=== PATIENT | male | born 1965 | race Caucasian/White ===

== ENCOUNTER 2016-08-31 22:05 | Emergency (ER) | payer OTHER ==
[2016-08-31] MEDS ORDERED: HYDROcod/ACET 5/325 Prepack 6 PO STA (23:28)
[2016-08-31] MEDS ORDERED: HYDROcod/ACET 5/325 Prepack 6 PO ONE (23:29)
== END 2016-08-31 23:40 | disposition home or self-care (01) ==
DX: S99.921A Unspecified injury of right foot, initial encounter (principal); W20.8XXA Other cause of strike by thrown, projected or falling object, initial encounter; Y92.89 Other specified places as the place of occurrence of the external cause; Y99.0 Civilian activity done for income or pay

== ENCOUNTER 2016-11-30 03:35 | Outpatient (CLI) | payer OTHER | END 2016-11-30 03:36 | disposition critical access hospital (66) | LOC: EMS 03:35 | PROVIDERS: ATTEND Surgery | DX: R07.9 Chest pain, unspecified (principal) | CPT/HCPCS: A0425; A0427 ==

== ENCOUNTER 2016-11-30 03:54 | Emergency (ER) | payer OTHER ==
--- NOTE | 2016-11-30 04:12 | ED Physician Documentation ---
PD HPI CHEST PAIN - Stated complaint Stated Complaint: CP - Chief complaint Chief Complaint: Cardiac - History obtained from History obtained from: Patient - History of Present Illness Timing - onset: Enter time (03:00), Today Timing - onset during: Light activity (getting ready for work) Timing - details: Abrupt onset Pain level max: 7 Pain level now: 1 Quality: Pressure Location: Left chest Improved by: Nothing Worsened by: Inspiration Associated symptoms: Shortness of air. No: Diaphoresis, Nausea, Vomiting Similar symptoms before: Has not had sx before Recently seen: Not recently seen - Additional information Additional information: chest pressure while getting ready for work approximately 1 hour [employer] associated with dyspnea, /10 but after SLNTG x 1, discomfort down to 1/10. Also given aspirin in field by medics. Patient was prescribed metoprolol by an ED physician last year, 1 month supply with two refills. Patient describes poor compliance, such that the one month supply lasted a few months, and that he did not obtain refills (he did got to a pharmacy, but he did not have the bottle with him and it was not the same pharmacy that filled the initial rx), nor follow up with an outpatient physician. He has the empty bottle of metoprolol in ED at this time, and it indicates 2 refills remain that are still available until January 2017. Review of Systems Cardiac: reports: Chest pain / pressure. denies: Pedal edema Respiratory: reports: Dyspnea. denies: Cough GI: reports: Reviewed and negative Musculoskeletal: reports: Reviewed and negative PD PAST MEDICAL HISTORY - Past Medical History Past Medical History: Yes Cardiovascular: Hypertension GI: GERD HEENT: None - Past Surgical History Past Surgical History: No Ortho: Other - Present Medications Home Medications: Ambulatory Orders Medication Instructions Recorded Confirmed Lansoprazole [Prevacid] 30 mg PO DAILY 11/30/16 11/30/16 Metoprolol Tartrate 25 mg PO BID 11/30/16 11/30/16 - Allergies Allergies/Adverse Reactions: Allergies Allergy/AdvReac Type Severity Reaction Status Date / Time No Known Drug Allergies Allergy Verified 11/30/16 04:00 - Social History Does the pt smoke?: No Smoking Status: Never smoker Does the pt drink ETOH?: Yes Does the pt have substance abuse?: Yes Substance Use and Type: Marijuana - Immunizations Immunizations are current?: No - POLST Patient has POLST: No PD ED PE NORMAL - Vitals Vital signs reviewed: Yes - General General: Alert and oriented X 3, No acute distress, Well developed/nourished - Cardiac Cardiac: RRR, No murmur, No gallop, No rub - Respiratory Respiratory: No respiratory distress, Clear bilaterally - Abdomen Abdomen: Soft, Non tender - Derm Derm: Normal color, Warm and dry - Extremities Extremities: No edema Results - Vitals Vitals: Vital Signs - 24 hr 11/30/16 11/30/16 11/30/16 03:56 04:09 04:34 Temperature 36.9 C Heart Rate 76 74 69 Respiratory 18 12 15 Rate Blood Pressure 125/74 130/81 H 130/84 H O2 Saturation 98 96 94 11/30/16 05:15 Temperature 36.5 C Heart Rate 78 Respiratory 15 Rate Blood Pressure 129/80 O2 Saturation 98 Oxygen O2 Source Room air - EKG (time done) No standard instances Rate: Rate (enter#) (74) Rhythm: NSR [place]: Normal Intervals: Normal OK QRS: Normal Ischemia: Normal ST segments - Labs Labs: Laboratory Tests 11/30/16 11/30/16 11/30/16 04:05 04:05 04:05 WBC 5.9 RBC 4.29 L Hgb 14.1 Hct 41.2 L MCV 96.0 H MCH 32.9 H MCHC 34.3 RDW 13.7 Plt Count 203 MPV 7.8 Neut # 3.4 Lymph # 1.7 Cottle # 0.5 Eos # 0.2 Baso # 0.1 Absolute Nucleated RBC 0.01 Nucleated RBCs 0.1 D-Dimer Sodium 137 Potassium 3.8 Chloride 104 Carbon Dioxide 22 Anion Gap 11.0 BUN 10 Creatinine 0.8 Estimated GFR (MDRD) 103 Glucose 113 H Calcium 8.6 Total Bilirubin 0.5 AST 27 ALT 20 Alkaline Phosphatase 43 Troponin I < 0.04 Total Protein 6.3 L Albumin 3.9 Globulin 2.4 Albumin/Globulin Ratio 1.6 Lipase 33 11/30/16 04:05 WBC RBC Hgb Hct MCV MCH MCHC RDW Plt Count MPV Neut # Lymph # Cottle # Eos # Baso # Absolute Nucleated RBC Nucleated RBCs D-Dimer < 200.0 L Sodium Potassium Chloride Carbon Dioxide Anion Gap BUN Creatinine Estimated GFR (MDRD) Glucose Calcium Total Bilirubin AST ALT Alkaline Phosphatase Troponin I Total Protein Albumin Globulin Albumin/Globulin Ratio Lipase - Rads (name of study) chest xray Radiology: Prelim report reviewed, See rad report PD MEDICAL DECISION MAKING - ED course Complexity details: reviewed results, re-evaluated patient, considered differential, d/w patient Departure - Departure Disposition: 01 Home, Self Care Clinical Impression: Chest pain Condition: Good Instructions: ED Chest Pain Atypical Unkn Cause Follow-Up: [facility] [Provider Group] [facility] [Provider Group] Comments: Refill your blood pressure medication (metoprolol) and resume taking it as prescribed. It is very important that you follow up with a primary care physician. If you do not have one, I recommend you contact your insurance provider and ask to be assigned a physician. Forms: Activity restrictions Discharge Date/Time: 11/30/16 06:02
[2016-11-30 04:24] LABS: BASOPHILS # (AUTO) 0.1 10^3/uL (0.0-0.1); BASOPHILS % (AUTO) 1.2 %; EOSINOPHILS # (AUTO) 0.2 10^3/uL (0.0-0.7); EOSINOPHILS % (AUTO) 2.8 %; HCT - HEMATOCRIT 41.2 % (42.0-52.0); HGB - HEMOGLOBIN 14.1 g/dL (14.0-18.0); LYMPHOCYTES # (AUTO) 1.7 10^3/uL (1.5-3.5); LYMPHOCYTES % (AUTO) 29.6 %; MEAN CORPUSCULAR HEMOGLOBIN 32.9 pg (27.0-31.0); MEAN CORPUSCULAR HGB CONC 34.3 g/dL (32.0-36.0); MEAN PLATELET VOLUME 7.8 fL (7.4-11.4); MONOCYTES # (AUTO) 0.5 10^3/uL (0.0-1.0); MONOCYTES % (AUTO) 8.7 %; NEUTROPHILS # (AUTO) 3.4 10^3/uL (1.5-6.6); NEUTROPHILS % (AUTO) 57.7 %; NUCLEATED RED BLOOD CELLS AUTO 0.1 /100WBC; RED BLOOD COUNT 4.29 10^6/uL (4.70-6.10); RED CELL DISTRIBUTION WIDTH 13.7 % (12.0-15.0); UNCORRECTED WHITE BLOOD COUNT 5.9 x10^3/uL; WHITE BLOOD COUNT 5.9 x10^3/uL (4.8-10.8)
[2016-11-30 04:31] LABS: ALBUMIN/GLOBULIN RATIO 1.6 (1.0-2.2); BILIRUBIN,TOTAL 0.5 mg/dL (0.2-1.0); CALCIUM 8.6 mg/dL (8.5-10.3); CREATININE 0.8 mg/dL (0.6-1.2); POTASSIUM 3.8 mmol/L (3.5-5.0); TOTAL PROTEIN 6.3 g/dL (6.7-8.2)
--- NOTE | 2016-11-30 05:02 | XRAY Preliminary Report ---
Exam: XR Chest 2 View PA/LAT IMPRESSION: No acute cardiopulmonary abnormality demonstrated. Increased lung volumes suggesting und erlying obstructive pulmonary disease. [facility] SITE ID: [id number]
--- NOTE | 2016-11-30 05:05 | XRAY Report ---
EXAM: CHEST RADIOGRAPHY EXAM DATE: 11/30/2016 04:43 AM. CLINICAL HISTORY: Chest pain and shortness of breath, left-sided pain, lightheadedness COMPARISON: None. TECHNIQUE: 2 views. A total of 3 exposures are provided for review. FINDINGS: Lungs/Pleura: No focal opacities evident. No pleural effusion. No pneumothorax. Normal volumes. Incre ased lung volumes. Mediastinum: Heart and mediastinal contours are unremarkable. Other: None. IMPRESSION: No acute cardiopulmonary abnormality demonstrated. Increased lung volumes suggesting und erlying obstructive pulmonary disease. [facility] Referring Provider Line: [phone] SITE ID: [id number]
[2016-11-30 05:16] VITALS: BP 129/80
== END 2016-11-30 06:02 | disposition home or self-care (01) ==
LOC: EDUNIT# → ED 03:54
DX: R07.89 Other chest pain (principal); I10 Essential (primary) hypertension; Z91.14 Patient's other noncompliance with medication regimen; K21.9 Gastro-esophageal reflux disease without esophagitis
CPT/HCPCS: 36415; 71020; 80053; 83690; 84484; 85025; 85379; 93005; 93010; 99284

== ENCOUNTER 2019-10-05 14:49 | Outpatient (CLI) | payer OTHER | END 2019-10-05 14:50 | disposition home or self-care (01) | LOC: COV 14:49 | PROVIDERS: ATTEND Family Medicine | DX: R05 Cough (principal); R50.9 Fever, unspecified | CPT/HCPCS: 81599 ==

== ENCOUNTER 2020-10-12 | Outpatient (CLI) | payer OTHER | END 2020-10-12 21:47 | disposition EMS.NT | CPT/HCPCS: A0425; A0429 ==

== ENCOUNTER 2020-10-12 | Outpatient (CLI) | payer OTHER | END 2020-10-12 23:59 | disposition EMS.NT | DX: R04.0 Epistaxis (principal) ==

== ENCOUNTER 2020-10-12 21:58 | Emergency (ER) | payer OTHER ==
[2020-10-12] MEDS ORDERED: OXYMETAZOLINE HCL 100 SPRAYS BOTTLE NAS STA (22:15)
[2020-10-12] MEDS ORDERED: TRANEXAMIC ACID 1,000 MG/10 ML VIAL NAS STA (22:15)
[2020-10-12] MEDS ORDERED: SILVER NITRATE APPLICATOR TOP STA ×2 (22:28→22:29)
--- NOTE | 2020-10-12 22:39 | ED Physician Documentation ---
History of Present Illness - Stated complaint Stated Complaint: NOSEBLEEDS - Chief complaint Chief Complaint: General PD PAST MEDICAL HISTORY - Past Medical History Past Medical History: Yes Cardiovascular: Hypertension, High cholesterol GI: GERD HEENT: None - Past Surgical History Past Surgical History: No Ortho: Other - Present Medications Home Medications: Ambulatory Orders Medication Instructions Recorded Confirmed Lansoprazole [Prevacid] 30 mg PO DAILY 11/30/16 11/30/16 Metoprolol Tartrate 25 mg PO BID 11/30/16 11/30/16 - Allergies Allergies/Adverse Reactions: Allergies Allergy/AdvReac Type Severity Reaction Status Date / Time No Known Drug Allergies Allergy Verified 10/12/20 22:03 - Social History Does the pt smoke?: No Smoking Status: Never smoker Does the pt drink ETOH?: Yes Does the pt have substance abuse?: Yes - Immunizations Immunizations are current?: No - POLST Patient has POLST: No Results - Vitals Vitals: Vital Signs - 24 hr 10/12/20 10/12/20 22:03 22:07 Temperature 36.6 C 36.6 C Heart Rate 62 62 Respiratory 18 18 Rate Blood Pressure 161/112 H 161/112 H O2 Saturation 94 94 Oxygen O2 Source Room air
--- OUTSIDE RECORDS SUMMARY | 2020-10-12 23:02 | EXTERNAL MEDICAL SUMMARY RPT | Continuity of Care Document ---
:1965 Demographics Phone Unavailable Preferred Language Luxembourgish Marital Status Unknown Sikh Affiliation Unknown Race Unknown Ethnic Group Unknown Author Organization [place] Address [address] [id number] Phone Care Team Providers Name Role Phone Zuniga Unavailable Unavailable Problems date description facility [id number] Unspecified injury of head, initial enc [facility] Social History date description facility [id number]
[2020-10-13 00:20] VITALS: BP 117/67
--- NOTE | 2020-10-13 01:50 | ED Physician Documentation ---
History of Present Illness - Stated complaint Stated Complaint: NOSEBLEEDS - Chief complaint Chief Complaint: General - History obtained from History obtained from: Patient - Additonal information Additional information: 54-year-old man presents with bilateral epistaxis refractory to home care. Denies traumatic injury. Denies blood thinners. Denies any nose picking or instrumentation in the nose. Review of Systems Nose: reports: Epistaxis PD PAST MEDICAL HISTORY - Past Medical History Past Medical History: Yes Cardiovascular: Hypertension, High cholesterol GI: GERD HEENT: None - Past Surgical History Past Surgical History: No Ortho: Other - Present Medications Home Medications: Ambulatory Orders Medication Instructions Recorded Confirmed Lansoprazole [Prevacid] 30 mg PO DAILY 11/30/16 11/30/16 Metoprolol Tartrate 25 mg PO BID 11/30/16 11/30/16 - Allergies Allergies/Adverse Reactions: Allergies Allergy/AdvReac Type Severity Reaction Status Date / Time No Known Drug Allergies Allergy Verified 10/12/20 22:03 - Social History Does the pt smoke?: No Smoking Status: Never smoker Does the pt drink ETOH?: Yes Does the pt have substance abuse?: Yes - Immunizations Immunizations are current?: No - POLST Patient has POLST: No PD ED PE NORMAL - Vitals Vital signs reviewed: Yes - General General: Alert and oriented X 3, No acute distress, Well developed/nourished - HEENT HEENT: Atraumatic, PERRL, EOMI, Moist mucous membranes, Other (Blood in oropharynx. BL nares with active bleeding initially. after afrin and nasal packing, dried blood cleaned out and cautery was used to R nare. ) - Neck Neck: Supple, no meningeal sign Results - Vitals Vitals: Vital Signs - 24 hr 10/12/20 10/12/20 10/13/20 22:03 22:07 00:07 Temperature 36.6 C 36.6 C 36.6 C Heart Rate 62 62 91 Respiratory 18 18 18 Rate Blood Pressure 161/112 H 161/112 H 117/67 O2 Saturation 94 94 98 Oxygen O2 Source Room air PD MEDICAL DECISION MAKING - ED course ED course: 54-year-old man presents with epistaxis, resolved after Afrin, phenyl Afrin spray, and cautery. Return precautions given. Patient will f/u with primary doctor. Departure - Departure Disposition: 01 Home, Self Care Clinical Impression: Epistaxis Condition: Good Instructions: ED Nosebleed Comments: You are seen in the emergency department for nosebleed. Your nose was packed with gauze soaked in a medicine back clots blood. You also were given nasal spray that helps shrink the blood vessels in the nose, slowing down bleeding. I applied a silver nitrate stick to a area in the right nostril that was bleeding and it stopped. He should follow-up with your primary doctor this week. If you have further episodes of bleeding then he may need a referral to ear nose and throat. Return to the emergency department if you have any new or worsening symptoms or other concerns.
== END 2020-10-13 02:44 | disposition home or self-care (01) ==
LOC: EDUNIT# → ED 21:58
DX: R04.0 Epistaxis (principal); I10 Essential (primary) hypertension
CPT/HCPCS: 30901; 99283; A9270